=== PATIENT | male | born 1985 | race Caucasian/White ===

== ENCOUNTER 2016-04-19 16:14 | Emergency (ER) | payer BC ==
[~2016-04-19] VITALS: Ht 180.3 cm; Wt 86.0 kg
[2016-04-19] MEDS ORDERED: SODIUM CHLOR 0.9% 1000 ML INJ 1,000 ML IV ONE ×2 (16:18→17:15)
[2016-04-19] MEDS ORDERED: ONDANSETRON HCL 4 MG/2 ML VIAL IV PUSH ONE (16:30)
[2016-04-19] MEDS ORDERED: SODIUM CHLORIDE 0.9% FLUSH 5 ML FLUSH IVF PRN (16:30)
[2016-04-19 16:31] VITALS: BP 133/66; PULSE 76; RESP 18; TEMP 98.3; O2SAT 98
[2016-04-19 16:34] VITALS: O2SAT 98
[2016-04-19] MEDS ORDERED: KETOROLAC TROMETHAMINE 30 MG/ML (IVP) VIAL IV PUSH ONE (16:45)
[2016-04-19 16:48] LABS: CHLORIDE 107 MEQ/L (98-107); POTASSIUM 3.7 MEQ/L (3.5-5.1); SODIUM (NA) 140 MEQ/L (136-145)
[2016-04-19 16:51] LABS: ANION GAP 20 MEQ/L (5-15); BICARBONATE 12.9 MEQ/L (21.0-32.0)
[2016-04-19 16:52] LABS: BLOOD UREA NITROGEN 17 MG/DL (7-18)
[2016-04-19 16:54] LABS: ALT (GPT) 25 U/L (12-78); AST (GOT) 24 U/L (15-37); GLOMERULAR FILTRATION RATE 64 ML/MIN (>89)
[2016-04-19 16:56] LABS: TOTAL BILIRUBIN ADULT 0.5 MG/DL (0.2-1.0)
--- NOTE | 2016-04-19 16:56 | PD ---
HPI Chief Complaint: Seizure Time Seen by Provider: 16:18 Travel History International Travel<30 days: No Contact w/Intl Traveler<30days: No Traveled to known affect area: No History of Present Illness HPI Patient is a 30-year-old male who comes in by EMS after a reported seizure. He states he had one seizure before in 2011, but not started any medication as it was only his first time seizure. He does say he drinks alcohol on most days. He admits drinking last night. 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 He says the next thing he remembers is the ambulance coming. Per EMS he got out of the vehicle he was in and laid on the ground and had a possible seizure. EMS states there was no witnessed shaking of his body, but there was some rapid eye movement. EMS does state he seemed postictal on their arrival, but quickly improved. He is complaining of low back pain, which she says occurred after the seizure. He denies fever or chills. He denies any headaches. His other substance use. PFSH Past Medical History Immunizations Current: No Seizures: Yes Social History Alcohol Use: Yes (OCCASIONAL) Tobacco Use: Yes (2 PPD) Substance Use: Yes (marijuanna) Allergies-Medications (Allergen,Severity, Reaction): Coded Allergies: No Known Allergies (Verified , 04/19/16) Reported Meds & Prescriptions Reported Meds & Active Scripts Active Lumbar Back Brace/Support 1 Mis Mis 1 Ea .ROUTE DIRECTED Percocet (Oxycodone-Acetaminophen) 5-325 mg Tab 1 Tab PO Q4H PRN Review of Systems Except as stated in HPI: all other systems reviewed are Neg General / Constitutional: No: Fever, Chills Eyes: No: Blurred Vision HENT: No: Headaches Cardiovascular: No: Chest Pain or Discomfort Respiratory: No: Shortness of Breath Gastrointestinal: Positive: Vomiting Musculoskeletal: Positive: Pain Skin: No Change in Pigmentation Neurologic: Positive: Seizures, No: Weakness Physical Exam Narrative GENERAL: Awake and alert in mild distress. SKIN: Warm and dry. Several small scabs over most of his extremities. HEAD: Atraumatic. Normocephalic. EYES: Pupils equal and round. No scleral icterus. Extraocular movements intact. ENT: Mucous membranes pink and moist. Bite mirtha to the right side of the tongue. NECK: Trachea midline. No JVD. CARDIOVASCULAR: Regular rate and rhythm. No murmur appreciated. RESPIRATORY: No accessory muscle use. Clear to auscultation. Breath sounds equal bilaterally. GASTROINTESTINAL: Abdomen soft, non-tender, nondistended. MUSCULOSKELETAL: No obvious deformities. No clubbing. No cyanosis. No edema. Tender to palpation along the lower back. Tender along the lumbar spine as well as the paraspinal muscles. NEUROLOGICAL: Awake and alert. No obvious cranial nerve deficits. Motor grossly within normal limits. Normal speech. PSYCHIATRIC: Appropriate mood and affect; insight and judgment normal. Data Data Last Documented VS Vital Signs Date Time Temp Pulse Resp B/P Pulse Ox O2 Delivery O2 Flow Rate FiO2 04/19/16 20:54 75 18 163/74 99 04/19/16 18:22 Room Air 04/19/16 16:31 98.3 Orders Ondansetron Inj (Zofran Inj) (04/19/16 16:30) Complete Blood Count With Diff (04/19/16 16:18) Alcohol (Ethanol) (04/19/16 16:18) Drug Screen, Random Urine (04/19/16 16:18) Ct Brain W/O Iv Contrast(Rout) (04/19/16 ) Blood Glucose (04/19/16 16:18) Ecg Monitoring (04/19/16 16:18) Iv Access Insert/Monitor (04/19/16 16:18) Oximetry (04/19/16 16:18) Comprehensive Metabolic Panel (04/19/16 16:18) Sodium Chlor 0.9% 1000 Ml Inj (Ns 1000 M (04/19/16 16:18) Sodium Chloride 0.9% Flush (Ns Flush) (04/19/16 16:30) Ketorolac Inj (Toradol Inj) (04/19/16 16:45) Creatine Kinase (Cpk) (04/19/16 16:31) Urinalysis - C+S If Indicated (04/19/16 17:14) Chest, Pa & Lat (04/19/16 ) Sodium Chlor 0.9% 1000 Ml Inj (Ns 1000 M (04/19/16 17:15) Ct Lumb Spine W Iv Contrast (04/19/16 ) Iohexol 300 Inj (Rad Ct) (Omnipaque 300 (04/19/16 19:05) Oxycodone-Acetamin 5-325 Mg (Percocet (04/19/16 19:30) Mandatory Outpatient Referral (04/19/16 19:27) Labs Laboratory Tests Test 04/19/16 04/19/16 16:31 19:50 White Blood Count 28.2 TH/MM3 Red Blood Count 5.60 MIL/MM3 Hemoglobin 16.7 GM/DL Hematocrit 48.9 % Mean Corpuscular Volume 87.3 FL Mean Corpuscular Hemoglobin 29.8 PG Mean Corpuscular Hemoglobin 34.1 % Concent Red Cell Distribution Width 12.2 % Platelet Count 423 TH/MM3 Mean Platelet Volume 9.5 FL Neutrophils (%) (Auto) 82.0 % Lymphocytes (%) (Auto) 12.7 % Monocytes (%) (Auto) 4.4 % Eosinophils (%) (Auto) 0.7 % Basophils (%) (Auto) 0.2 % Neutrophils # (Auto) 23.1 TH/MM3 Lymphocytes # (Auto) 3.6 TH/MM3 Monocytes # (Auto) 1.2 TH/MM3 Eosinophils # (Auto) 0.2 TH/MM3 Basophils # (Auto) 0.1 TH/MM3 CBC Comment AUTO DIFF Differential Comment AUTO DIFF CONFIRMED Sodium Level 140 MEQ/L Potassium Level 3.7 MEQ/L Chloride Level 107 MEQ/L Carbon Dioxide Level 12.9 MEQ/L Anion Gap 20 MEQ/L Blood Urea Nitrogen 17 MG/DL Creatinine 1.30 MG/DL Estimat Glomerular Filtration 64 ML/MIN Rate Random Glucose 157 MG/DL Calcium Level 9.6 MG/DL Total Bilirubin 0.5 MG/DL Aspartate Amino Transf 24 U/L (AST/SGOT) Alanine Aminotransferase 25 U/L (ALT/SGPT) Alkaline Phosphatase 88 U/L Total Creatine Kinase 281 U/L Total Protein 8.6 GM/DL Albumin 4.6 GM/DL Ethyl Alcohol Level LESS THAN 3 MG/DL Urine Color YELLOW Urine Turbidity CLEAR Urine pH 6.0 Urine Specific [place] 1.020 Urine Protein 30 mg/dL Urine Glucose (UA) NEG mg/dL Urine Ketones NEG mg/dL Urine Occult Blood MOD Urine Nitrite NEG Urine Bilirubin NEG Urine Leukocyte Esterase NEG Urine RBC 0-3 /hpf Urine WBC 0-2 /hpf Urine Squamous Epithelial 0-5 /hpf Cells Urine Mucus RARE /lpf Urine Sperm RARE Microscopic Urinalysis Comment CULT NOT INDICATED Urine Opiates Screen NEG Urine Barbiturates Screen NEG Urine Amphetamines Screen NEG Urine Benzodiazepines Screen POS Urine Cocaine Screen NEG Urine Cannabinoids Screen POS MDM Medical Decision Making Medical Screen Exam Complete: Yes Emergency Medical Condition: Yes Medical Record Reviewed: Yes Differential Diagnosis Seizure versus electrolyte abnormality versus infection versus substance withdrawal Narrative Course Patient is a 31-year-old male who comes in after possible seizure. Exam shows abrasion to the right side of the tongue, patient is neurologically intact. While patient was being connected to the carrier washer, he began vomiting. IV established, patient given IV fluids, Zofran, Toradol for back pain. CT head performed shows no acute abnormalities. CT of the lumbar spine shows a compression fracture of T12 and L1. I spoke with Dr. Vazquez of neurosurgery, who suggests an LSO brace as well as follow up in the office in 2 weeks. Patient given Percocet for continued pain. Patient's labs did show elevation of his white count to 28. He says that he has had no infective symptoms at all. He says that he has been feeling fine prior to the episode. Chest x-ray shows no signs of pneumonia. Urine sent for urinalysis. It is possible the elevation in the white blood cell count can be due to seizures. Patient advised of this abnormality. Advised of the results of his CAT scan. Will be discharged with prescription for Percocet for pain control. Given prescription for the LSO brace. Advised to follow-up with neurosurgery. Advised follow-up with his doctor regarding the elevated white blood cell count. Advised to return to the ED as needed for any worsening symptoms. Diagnosis Primary Impression: Seizure Additional Impressions: Compression fracture of L1 lumbar vertebra Qualified Code: S32.010A - Compression fracture of L1 lumbar vertebra, closed , initial encounter Compression fracture of T12 vertebra Qualified Code: M48.54XA - Compression fracture of T12 vertebra, initial encounter Referrals: Reggie Moreno MD call for appointment Thee Vazquez MD call for appointment Patient Instructions: General Instructions, Vertebral Compression Fracture (ED) Additional Instructions: Wear the LSO brace for the fractures in your back. Follow up with neurosurgery in 2 weeks. Your white blood cell count was very elevated today, which may be partly due to the seizure. You should follow up with your doctor regarding this to make sure it has come back to normal. Return to the ED as needed for any worsening symptoms. You need to follow up with neurology regarding the seizure and cannot drive for 6 months. Scripts Lumbar Back Brace/Support 1 Mis Mis #1 Ea .route As Directed Prov:Destiny Montano MD 04/19/16 Oxycodone-Acetaminophen (Percocet)5-325 mg Tab1 Tab PO Q4H PRN (PAIN) #15 TAB Ref 0 Prov:Destiny Montano MD 04/19/16 Disposition: 01 DISCHARGE HOME Condition: Stable Destiny Montano MD Apr 19, 2016 16:56
[2016-04-19 16:57] LABS: ALKALINE PHOSPHATASE 88 U/L (45-117)
[2016-04-19 16:58] LABS: AUTOMATED NEUTROPHIL # 23.1 TH/MM3 (1.8-7.7); BASOPHIL # 0.1 TH/MM3 (0-0.2); BASOPHIL % 0.2 % (0.0-2.0); EOSINOPHIL # 0.2 TH/MM3 (0-0.4); EOSINOPHIL % 0.7 % (0.0-4.0); HEMATOCRIT 48.9 % (39.0-51.0); LYMPH % 12.7 % (9.0-44.0); LYMPHOCYTE # 3.6 TH/MM3 (1.0-4.8); MEAN CELL VOLUME 87.3 FL (80.0-100.0); MEAN CORPUSCULAR HEMOGLOBIN 29.8 PG (27.0-34.0); MEAN CORPUSCULAR HGB CONC 34.1 % (32.0-36.0); MONO % 4.4 % (0.0-8.0); PLATELET COUNT 423 TH/MM3 (150-450); RED CELL DISTRIBUTION WIDTH 12.2 % (11.6-17.2); WHITE BLOOD COUNT 28.2 TH/MM3 (4.0-11.0)
[2016-04-19 17:08] LABS: CREATINE KINASE 281 U/L (39-308)
[2016-04-19 17:11] LABS: HEMO FLAGS AUTO DIFF
[2016-04-19 17:56] LABS: SCAN/DIFF AUTO DIFF CONFIRMED
[2016-04-19 18:22] VITALS: BP 140/73; PULSE 75; RESP 16; O2SAT 97
--- NOTE | 2016-04-19 18:29 | RADHPO ---
EXAM DATE/TIME: 04/19/2016 18:15 [facility] COMPARISON: CHEST SINGLE AP, June 11, 2014, 21:46. INDICATIONS : Seizure. MEDICAL HISTORY : None. SURGICAL HISTORY : None. ENCOUNTER: Initial ACUITY: 1 day PAIN SCORE: 0/10 LOCATION: Bilateral chest FINDINGS: PA and lateral views of the chest demonstrate the lungs to be symmetrically aerated without evidence of mass, infiltrate or effusion. The cardiomediastinal contours are unremarkable. Osseous structure s are intact. CONCLUSION: Normal examination. Nakul Shrestha MD on April 19, 2016 at 18:27 Board Certified Radiologist. This report was verified electronically.
--- NOTE | 2016-04-19 18:36 | RADHPO ---
EXAM DATE/TIME: 04/19/2016 18:05 [facility] COMPARISON: CT BRAIN W/O CONTRAST, June 11, 2014, 21:58. INDICATIONS : Altered mental status. Possible seizure. RADIATION DOSE: 57.45 CTDIvol (mGy) MEDICAL HISTORY : Seizures. SURGICAL HISTORY : None. ENCOUNTER: Initial ACUITY: 1 day PAIN SCALE: 0/10 LOCATION: cranial TECHNIQUE: Multiple contiguous axial images were obtained of the head. Using automated exposure control and adj ustment of the mA and/or kV according to patient size, radiation dose was kept as low as reasonably a chievable to obtain optimal diagnostic quality images. FINDINGS: CEREBRUM: The ventricles are normal for age. No evidence of midline shift, mass lesion, hemorrhage or acute in farction. No extra-axial fluid collections are seen. POSTERIOR FOSSA: The cerebellum and brainstem are intact. The 4th ventricle is midline. The cerebellopontine angle i s unremarkable. EXTRACRANIAL: The visualized portion of the orbits is intact. SKULL: The calvaria is intact. No evidence of skull fracture. CONCLUSION: Normal examination. Nakul Shrestha MD on April 19, 2016 at 18:34 Board Certified Radiologist. This report was verified electronically.
[2016-04-19] MEDS ORDERED: IOHEXOL 300 MG/ML 100 ML BTL (for Rad CT) IV ONE (19:05)
--- NOTE | 2016-04-19 19:15 | RADHPO ---
EXAM DATE/TIME: 04/19/2016 18:39 [facility] COMPARISON: CHEST PA & LAT, April 19, 2016, 18:15. INDICATIONS : Trauma. Fall. Possible seizure. Lower back pain. IV CONTRAST: 100 cc Omnipaque 300 (iohexol) IV RADIATION DOSE: 40.14 CTDIvol (mGy) MEDICAL HISTORY : Seizures. SURGICAL HISTORY : None. ENCOUNTER: Initial ACUITY: 1 day PAIN SCALE: 0/10 LOCATION: Lower back. TECHNIQUE: Volumetric scanning of the lumbar spine was performed. Multiplanar reconstructions in the sagittal, coronal and oblique axial planes were performed. Using automated exposure control and adjustment of the mA and/or kV according to patient size, radiation dose was kept as low as reasonably achievable t o obtain optimal diagnostic quality images. FINDINGS: There are compression deformities involving the superior endplates of T12 and L1 with mild loss of ve rtebral body height. No other fractures are seen. Mild diffuse disc bulge at L2-3 through L4-5 with n o significant canal or foraminal narrowing. CONCLUSION: 1. T12 and L1 mild superior endplate compression fractures identified. Nakul Shrestha MD on April 19, 2016 at 19:11 Board Certified Radiologist. This report was verified electronically.
[2016-04-19] MEDS ORDERED: oxyCODONE/ACETAMINOPHEN 5 MG/325 MG TAB PO ONE (19:30)
[2016-04-19 19:45] VITALS: BP 147/78; PULSE 89; RESP 20; O2SAT 98
[2016-04-19 20:07] LABS: GLUCOSE,URINE NEG (NEG); KETONE, URINE NEG (NEG); NITRITE,URINE NEG (NEG)
[2016-04-19 20:12] LABS: AMPHETAMINE, URINE NEG (NEG); BARBITURATES, URINE NEG (NEG); COCAINE, URINE NEG (NEG)
[2016-04-19] MEDS ORDERED: LUMBAR BACK BRA1 MIS (20:12)
[2016-04-19] MEDS ORDERED: PERC5TAB12 PO (20:12)
[2016-04-19 20:17] LABS: BLOOD, URINE MOD (NEG)
[2016-04-19 20:19] LABS: MUCUS URINE RARE /lpf (OCC); RBC, URINE 0-3 /hpf (0-3); URINE COLOR YELLOW (YELLW/STRAW); WBC, URINE 0-2 /hpf (0-5)
[2016-04-19 20:20] LABS: COMMENT (UR) CULT NOT INDICATED; CULTURE IF INDICATED CULT NOT INDICATED; SQUAMOUS EPITHELIAL CELL URINE 0-5 /hpf (0-5)
[2016-04-19 20:41] VITALS: RESP 18
[2016-04-19 20:54] VITALS: BP 163/74
== END 2016-04-19 21:18 | disposition home or self-care (01) ==
LOC: PHED 16:14
DX: S00.512A Abrasion of oral cavity, initial encounter (principal); M48.56XA Collapsed vertebra, not elsewhere classified, lumbar region, initial encounter for fracture; M48.54XA Collapsed vertebra, not elsewhere classified, thoracic region, initial encounter for fracture; F10.10 Alcohol abuse, uncomplicated; F17.210 Nicotine dependence, cigarettes, uncomplicated; F12.10 Cannabis abuse, uncomplicated; X58.XXXA Exposure to other specified factors, initial encounter; Y93.9 Activity, unspecified; Y92.9 Unspecified place or not applicable; Y99.9 Unspecified external cause status
CPT/HCPCS: 70450; 71020; 72132; 80053; 80307; 80320; 81001; 82550; 85025; 96361; 96374; 96375; 99285; J1885; J2405; J7030; Q9967

== ENCOUNTER 2016-04-30 09:41 | Emergency (ER) | payer OTHER, BC ==
[~2016-04-30] VITALS: Ht 180.3 cm; Wt 93.0 kg
[~2016-04-30 09:41] MED LIST: LUMBAR BACK BRA1 MIS; PERC5TAB12 PO
[2016-04-30 09:57] VITALS: BP 138/94; PULSE 96; RESP 16; TEMP 98.8; O2SAT 98
[2016-04-30] MEDS ORDERED: LUMBAR BACK BRA1 MIS (10:17)
--- NOTE | 2016-04-30 11:12 | PD ---
HPI Chief Complaint: Seizure Time Seen by Provider: 10:56 Travel History International Travel<30 days: No Contact w/Intl Traveler<30days: No Traveled to known affect area: No History of Present Illness HPI Patient presents with a very interesting story. Reports a seizure approximately a week ago worked up on 04/19/16. Today the patient presents for MRI of the brain. States he is involved in a drug study for ulcerative colitis with a Dr. Dillon, even though he does not have ulcerative colitis. Patient is carrying an alert card that reports risk of hypersensitivity reaction, decreased immunity, increased risk of infection and progressive multifocal leukoencephalopathy. He is asymptomatic. Denies any injection site reactions. Denies skin rash and itching chills swelling of her face and eyelids lips or tongue or throat. Denies chest pain wheezing and difficulty breathing vomiting feeling dizzy or faint. Denies symptoms of PML. Denies any changes and thought confusion or memory loss personality changes weakness difficulty with ambulation or balance difficulties with speech or changes in eye sight. However he did have the seizure last week. He states Dr. Dillon recommended he go to [facility] or to [place] for an MRI. Evaluation 11 days ago for the original seizure did reveal a leukocytosis with a white count of 28 and a T12-L1 compression fracture. Per the history of present illness this was a non- witnessed seizure with possible postictal state which resolved quickly. Patient stated at that time he did have a seizure in 2011 but was not started on any medication as it was his first seizure. States he does drink alcohol most days. Admits to drinking prior to the seizure on 10/17. Patient was given a mandatory referral to neurosurgery with recommendations to wear LSO brace. Patient states he has been compliant with that. During that entire examination there was not a single mention of a drug study for ulcerative colitis and it's risk factors. PFSH Past Medical History Musculoskeletal: Yes (fx T12, L1 from seizure) Immunizations Current: Yes Seizures: Yes Influenza Vaccination: No Social History Alcohol Use: Yes (daily 2-3 beers) Tobacco Use: No (former) Substance Use: Yes (marijuanna) Allergies-Medications (Allergen,Severity, Reaction): Coded Allergies: No Known Allergies (Verified , 04/30/16) Reported Meds & Prescriptions Reported Meds & Active Scripts Active Reported Lumbar Back Brace/Support 1 Mis Mis 1 Ea .ROUTE DIRECTED Review of Systems General / Constitutional: No: Fever Eyes: No: Visual changes HENT: No: Headaches Cardiovascular: No: Chest Pain or Discomfort Respiratory: No: Shortness of Breath Gastrointestinal: No: Abdominal Pain Genitourinary: No: Dysuria Musculoskeletal: No: Pain Skin: No Rash Neurologic: No: Weakness Psychiatric: No: Depression Endocrine: No: Polydipsia Hematologic/Lymphatic: No: Easy Bruising Physical Exam Narrative GENERAL: Well-nourished, well-developed patient. SKIN: Warm and dry. HEAD: Normocephalic. EYES: No scleral icterus. No injection or drainage. NECK: Supple, trachea midline. No JVD or lymphadenopathy. CARDIOVASCULAR: Regular rate and rhythm without murmurs, gallops, or rubs. RESPIRATORY: Breath sounds equal bilaterally. No accessory muscle use. GASTROINTESTINAL: Abdomen soft, non-tender, nondistended. MUSCULOSKELETAL: No cyanosis, or edema. Patient is in his LSO brace BACK: Nontender without obvious deformity. No CVA tenderness. Data Data Last Documented VS Vital Signs Date Time Temp Pulse Resp B/P Pulse Ox O2 Delivery O2 Flow Rate FiO2 04/30/16 13:40 72 18 146/83 99 Room Air 04/30/16 09:57 98.8 Orders Complete Blood Count With Diff (04/30/16 11:12) Mri Brain W/O Contrast (04/30/16 ) Labs Laboratory Tests Test 04/30/16 11:14 White Blood Count 6.5 TH/MM3 Red Blood Count 4.67 MIL/MM3 Hemoglobin 13.8 GM/DL Hematocrit 40.4 % Mean Corpuscular Volume 86.7 FL Mean Corpuscular Hemoglobin 29.6 PG Mean Corpuscular Hemoglobin 34.2 % Concent Red Cell Distribution Width 12.0 % Platelet Count 384 TH/MM3 Mean Platelet Volume 8.3 FL Neutrophils (%) (Auto) 59.5 % Lymphocytes (%) (Auto) 28.5 % Monocytes (%) (Auto) 8.5 % Eosinophils (%) (Auto) 2.7 % Basophils (%) (Auto) 0.8 % Neutrophils # (Auto) 3.7 TH/MM3 Lymphocytes # (Auto) 1.9 TH/MM3 Monocytes # (Auto) 0.6 TH/MM3 Eosinophils # (Auto) 0.2 TH/MM3 Basophils # (Auto) 0.1 TH/MM3 CBC Comment DIFF FINAL Differential Comment MDM Medical Decision Making Medical Screen Exam Complete: Yes Emergency Medical Condition: No Differential Diagnosis Previous seizure activity, leukocytosis, drug reaction Narrative Course Assessment and plan discussed with patient at bedside. Spoke with Dr. Dillon with [facility] who felt that this is a medical emergency as the patient tested positive for Josh Yoon virus which is a possible risk factor or indication of progression of multifocal leukoencephalopathy. White count has normalized. Last 72 hours Impressions Brain MRI 04/30/16 0000 Signed Impressions: Service Date/Time: Monday, April 30, 2016 13:07 - CONCLUSION: Negative brain MRI. No abnormality is identified to explain the patient's seizures. Umair Guerra MD Diagnosis Primary Impression: Seizure Patient Instructions: General Instructions Additional Instructions: Encouraged to keep follow-up with neurosurgery and follow-up with Dr. Dillon for further evaluation associated with drug study Med/Other Pt SpecificInfo: No Meds Exist/No RX given Disposition: 01 DISCHARGE HOME Condition: Good Chandrakant Bonner MD Apr 30, 2016 11:12
[2016-04-30 11:13] VITALS: BP 128/63; PULSE 77; RESP 18; O2SAT 100
[2016-04-30 11:23] LABS: AUTOMATED NEUTROPHIL # 3.7 TH/MM3 (1.8-7.7); BASOPHIL # 0.1 TH/MM3 (0-0.2); BASOPHIL % 0.8 % (0.0-2.0); EOSINOPHIL # 0.2 TH/MM3 (0-0.4); EOSINOPHIL % 2.7 % (0.0-4.0); HEMATOCRIT 40.4 % (39.0-51.0); HEMO FLAGS DIFF FINAL; LYMPH % 28.5 % (9.0-44.0); LYMPHOCYTE # 1.9 TH/MM3 (1.0-4.8); MEAN CELL VOLUME 86.7 FL (80.0-100.0); MEAN CORPUSCULAR HEMOGLOBIN 29.6 PG (27.0-34.0); MEAN CORPUSCULAR HGB CONC 34.2 % (32.0-36.0); MONO % 8.5 % (0.0-8.0); NEUT % 59.5 % (16.0-70.0); PLATELET COUNT 384 TH/MM3 (150-450); RED BLOOD COUNT 4.67 MIL/MM3 (4.50-5.90); WHITE BLOOD COUNT 6.5 TH/MM3 (4.0-11.0)
--- NOTE | 2016-04-30 13:18 | RADHPO ---
EXAM DATE/TIME: 04/30/2016 13:07 [facility] COMPARISON: CT BRAIN W/O CONTRAST, April 19, 2016, 18:05. INDICATIONS : Seizures. MEDICAL HISTORY : None. SURGICAL HISTORY : None. ENCOUNTER: Initial ACUITY: 1 day PAIN SCORE: 0/10 LOCATION: cranial TECHNIQUE: Multiplanar, multisequence MRI of the brain was performed without contrast. FINDINGS: CEREBRUM: The ventricles are normal for age. No evidence of midline shift, mass lesion, hemorrhage or acute in farction. No extraaxial fluid collections are seen. The pituitary gland and suprasellar cistern are normal in configuration. The hippocampi are symmetric. WHITE MATTER: No significant signal abnormalities are seen in the white matter. POSTERIOR FOSSA: The cerebellum and brainstem demonstrate no abnormality. The 4th ventricle is midline. The cerebello pontine angle is unremarkable. The cerebellar tonsils are normal in position. DIFFUSION IMAGING: No focal areas of restricted diffusion are seen. No evidence of acute infarction. EXTRACRANIAL: The visualized portions of the orbits and paranasal sinuses are unremarkable. CONCLUSION: Negative brain MRI. No abnormality is identified to explain the patient's seizures. Umair Guerra MD on April 30, 2016 at 13:10 Board Certified Radiologist. This report was verified electronically.
[2016-04-30 13:40] VITALS: BP 146/83; PULSE 72; RESP 18; O2SAT 99
== END 2016-04-30 13:52 | disposition home or self-care (01) ==
LOC: PHED 09:41
DX: R56.9 Unspecified convulsions (principal)
CPT/HCPCS: 70551; 85025

== ENCOUNTER 2016-08-04 16:42 | Emergency (ER) | payer BC ==
[~2016-08-04] VITALS: Ht 177.8 cm; Wt 88.4 kg
[~2016-08-04 16:42] MED LIST changes: -PERC5TAB12 PO
[2016-08-04 16:44] VITALS: BP 148/94; PULSE 102; RESP 16; TEMP 98.4; O2SAT 98
[2016-08-04] MEDS ORDERED: IBUP400T20 PO (17:00)
--- NOTE | 2016-08-04 17:04 | PD ---
HPI Chief Complaint: Oral / Dental Pain or Problem Time Seen by Provider: 17:00 Travel History International Travel<30 days: No Contact w/Intl Traveler<30days: No Traveled to known affect area: No History of Present Illness HPI Patient comes in complaining of dental pain ongoing for 4 days. Patient states tooth partially broke off several years ago, but he has not have the money to get it fixed. Patient states he's been taking ibuprofen for symptomatic relief. Patient reports swelling began today. Pain is worse to palpation. Denies any radiation of the pain. Denies any nausea, vomiting, fevers, or difficulty swallowing. PFSH Past Medical History Diminished Hearing: No Musculoskeletal: Yes (fx T12, L1 from seizure) Immunizations Current: Yes Seizures: Yes Influenza Vaccination: No Social History Alcohol Use: Yes (6 PK BEER, DAILY; LAST USED 08/03/16) Tobacco Use: No (QUIT 2015) Substance Use: Yes (HX marijuanna; DENIES 08/04/16) Allergies-Medications (Allergen,Severity, Reaction): Coded Allergies: No Known Allergies (Verified , 04/30/16) Reported Meds & Prescriptions Reported Meds & Active Scripts Active Naprosyn (Naproxen) 500 Mg Tab 500 Mg PO Q12HR PRN Do not take if taking ibuprofen. Clindamycin (Clindamycin HCl) 150 Mg Cap 2 Tab PO Q6H 10 Days Reported Ibuprofen 400 Mg Tab 400 Mg PO Q8H PRN Review of Systems Except as stated in HPI: all other systems reviewed are Neg Physical Exam Narrative GENERAL: Well-developed, overly nourished, in no acute distress, and non-ill appearing. SKIN: Focused skin assessment warm and dry. HEAD: Atraumatic. Normocephalic. EYES: Pupils equal and round. EOMI. No scleral icterus. No injection or drainage. ENT: No nasal bleeding or discharge. Mucous membranes pink and moist. Poor dentition with a visible and palpable abscess noted left upper tooth approximately #14. Floor of the mouth, submandibular, and submental are all to soft palpation NECK: Trachea midline. No cervical lymphadenopathy. Supple. No nuclear rigidity. RESPIRATORY: No accessory muscle use. No respiratory distress. MUSCULOSKELETAL: No obvious deformities. No clubbing. No cyanosis. No edema. Full range of motion. NEUROLOGICAL: Awake and alert. No obvious cranial nerve deficits. Motor grossly within normal limits. Normal speech. PSYCHIATRIC: Appropriate mood and affect; insight and judgment normal. Data Data Last Documented VS Vital Signs Date Time Temp Pulse Resp B/P Pulse Ox O2 Delivery O2 Flow Rate FiO2 08/04/16 16:44 98.4 102 16 148/94 98 MDM Medical Decision Making Medical Screen Exam Complete: Yes Emergency Medical Condition: Yes Differential Diagnosis Dental abscess, dental infection, dentalgia, other Narrative Course The patient presented with dental pain. There is no fever. There is no significant facial swelling or evidence of cellulitis. There is poor dentition and evidence of drainable abscess. The abscess was drained intraorally. The patient tolerated the procedure well. There is no evidence of significant deep or invading abscess at this time. The patient will be placed on antibiotics and pain medication. The patient was instructed to follow up with a dentist. The patient was given the dental referral sheet. Warnings were discussed with the patient regarding worsening of infection. The patient is to return if pain worsens, develops progressive swelling or facial redness or fever. The patient agrees with plan. Patient in no obvious distress upon re-evaluation. Patient was asked if they wanted to speak to my attending, which the patient did not wish to do at this time. Any questions/concerns in reference to patient diagnosis/condition discussed and clarified prior to patient's discharge. Reinforced sheer importance of close follow up with patient's primary physician or primary care clinic. Instructed patient to return to ED immediately, if symptoms return/ worsen. Pt showed understanding of above instructions. Further instructions and recommendations were detailed in discharge paperwork. Pt ambulated without difficulty out of ED at discharge. Procedures Procedure Narrative Verbal consent was obtained. Topical Hurricaine spray was used to successfully anesthetized the abscess. A # 16-gauge needle used to make a puncture wound in the abscess and purulent discharge was drained. Patient tolerated procedure well. There were no complications. Diagnosis Primary Impression: Dental abscess Patient Instructions: Dental Abscess (GEN), Dental Caries (DC), General Instructions Additional Instructions: Follow-up with your primary care physician and dentist as soon as possible. Rinse mouth with warm salt water gargles. Take all medication as prescribed. Return to the emergency department if symptoms get worse. Med/Other Pt SpecificInfo: Prescription(s) given Scripts Naproxen (Naprosyn)500 Mg [id number] Mg PO Q12HR PRN (PAIN SCALE 1 TO 10) #14 TAB Ref 0 Do not take if taking ibuprofen. Prov:Smooth Cook MD 08/04/16 Clindamycin 150 Mg Cap2 Tab PO Q6H 10 Days Ref 0 Prov:Smooth Cook MD 08/04/16 Disposition: 01 DISCHARGE HOME Condition: Stable Seamus Junior Aug 04, 2016 17:04
[2016-08-04] MEDS ORDERED: CLIN1CAP5 PO (17:06)
[2016-08-04] MEDS ORDERED: NAPR500 PO (17:06)
== END 2016-08-04 17:21 | disposition home or self-care (01) ==
LOC: PHEFT 16:42
DX: K04.7 Periapical abscess without sinus (principal)
CPT/HCPCS: 41800

== ENCOUNTER → 2017-02-28 | Outpatient (CLI) | payer BC ==
[~2017-02-28] MED LIST changes: +CLIN150C14 PO; +IBUP1TAB5 PO; -LUMBAR BACK BRA1 MIS; +NAPR500 PO
--- NOTE | 2017-02-28 19:10 | MG ---
cc: ROQUE MESSER M.D. Lab No: Date: 02/28/2017 Age: Sex: M Race: Outpatient EEG. REQUESTING PHYSICIAN Dr. Kang. HISTORY An EEG was obtained on this 32-year-old patient being evaluated for possible seizures. The patient is described as awake and drowsy. DESCRIPTION There is some 10-12 per second alpha rhythms in the central and posterior head regions. There are beta rhythms centrally and frontally. Intermittently there is some bilateral slower rhythms and photic stimulation showed bilateral driving response. During hyperventilation this is a buildup of theta and delta rhythms of high amplitude. Subsequently there is a lot of artifact. Photic stimulation was unremarkable. The patient enters sleep stage I and possibly sleep stage II briefly towards the end. INTERPRETATION This EEG is remarkable for some intermittent mild slowing bilaterally, possibly right more than left but there are no epileptiform discharges. Clinical and imaging correlation. MD GREG Prabhakar/KK /6:45 PM /7:06 PM
== END ==
LOC: HEEG 09:39
PROVIDERS: ATTEND Psychiatry & Neurology Neurology
DX: R56.9 Unspecified convulsions (principal)
CPT/HCPCS: 95819